=== PATIENT | female | born 1975 | race Caucasian/White ===

== ENCOUNTER → 2022-10-09 | Outpatient (CLI) | payer SELFPAY ==
--- NOTE | 2022-10-09 11:44 | Diagnostic Imaging Report ---
Clinical Indication: Patient has cervical spine pain. No history of injury. Exam: MRI of the cervical spine performed without IV contrast. Sequences include sagittal T1, sagittal T2, sagittal T2 fat-sat, and axial T2. Comparison: None. Findings: There is normal craniocervical and anterior atlanto-odontoid alignment. Cervical spinal cord has normal anatomic appearance with no abnormal cord signal. Limited visualization of the posterior fossa is unremarkable. There is no paraspinal soft tissue abnormality. There is no significant central spinal canal or neural foramen narrowing. The intervertebral disk heights are well-preserved. C1-C2: Unremarkable. C2-C3: There is mild left facet arthropathy. There is no significant central spinal canal or neural foramen narrowing. C3-C4: Unremarkable. C4-C5: Unremarkable. C5-C6: There is a subtle posterior disk bulge with annular tear. There is no significant central spinal canal or neural foramen narrowing. C6-C7: Unremarkable. C7-T1: Unremarkable. T1-T2: There is an 8 mm perineural cyst involving the left T1-T2 region. There is no significant central spinal canal or neural foramen narrowing. Impression: 1: There is a subtle C5-C6 posterior disk bulge with annular tear. There is no significant central spinal canal or neural foramen narrowing. 2: There is a small left T1-T2 perineural cyst. 3: Otherwise, the cervical spine is unremarkable. Dictated by: Dictated on workstation # [id number]
== END ==
LOC: RAD 09:54
PROVIDERS: ATTEND Internal Medicine
DX: M50.222 Other cervical disc displacement at C5-C6 level (principal); M50.323 Other cervical disc degeneration at C6-C7 level; G96.191 Perineural cyst
CPT/HCPCS: 72141